=== PATIENT | male | born 1975 | race Caucasian/White ===

== ENCOUNTER 2023-03-15 13:26 | Day surgery (SDC) | payer OTHER ==
[~2023-03-15 13:26] MED LIST: LACTATED RINGERS 1,000 ML IV SCH; LIDOCAINE 1% (10MG/ML) FOR IV START INTRADERMA PRN
[2023-03-15 14:47] VITALS: TEMP 97.2
[2023-03-15] MEDS ORDERED: PROPOFOL 10 MG/ML 20 ML VIAL IV ONE (15:59)
[2023-03-15] MEDS ORDERED: LIDOCAINE 1% INJ 10MG/ML (20 ML MDV) ONE (15:59)
--- NOTE | 2023-03-15 16:14 | P.PCN ---
Date of Procedure: 03/15/23 Procedure(s) Performed: BRIEF HISTORY: Patient is a 47-year-old pleasant at male scheduled for an elective colonoscopy as a part of screening for colon cancer. PROCEDURE PERFORMED: Colonoscopy. PREOPERATIVE DIAGNOSIS: Screening for colon cancer. IV sedation per Anesthesia. PROCEDURE: After informed consent was obtained, the patient, was brought into the endoscopy unit. IV sedation was administered by Anesthesia under continuous monitoring. Digital rectal examination was normal. Initially the Olympus CF-160 flexible video colonoscope was then inserted in the rectum, gradually advanced into the cecum without any difficulty. Careful examination was performed as the scope was gradually being withdrawn. Ileocecal valve and the appendiceal orifice were visualized and appeared normal. Prep was excellent. Mucosa of the cecum, ascending colon, transverse colon, descending colon, sigmoid colon, and rectum appeared normal. Retroflexion was performed in the rectum and no lesions were seen. The patient tolerated the procedure well. IMPRESSION: Normal-appearing colon from rectum to cecum no evidence of colorectal neoplasia RECOMMENDATIONS: Findings of this examination were discussed with the patient as well as his family. He was advised to have a repeat screening colonoscopy in 10 years.
[2023-03-15 17:12] VITALS: BP 119/75; PULSE 67; RESP 16
== END 2023-03-15 17:03 | disposition home or self-care (01) ==
LOC: ORWHC2ENDO 13:26
PROVIDERS: ATTEND Internal Medicine Gastroenterology
DX: Z12.11 Encounter for screening for malignant neoplasm of colon (principal); I10 Essential (primary) hypertension; E78.5 Hyperlipidemia, unspecified; G47.33 Obstructive sleep apnea (adult) (pediatric); F41.9 Anxiety disorder, unspecified; Z79.899 Other long term (current) drug therapy

== ENCOUNTER → 2024-09-08 | Outpatient (CLI) | payer OTHER ==
[2024-09-08 14:05] VITALS: BP 143/88; PULSE 68; RESP 16; TEMP 98
--- NOTE | 2024-09-08 18:33 | P.SLEEP ---
History of Present Illness H&P Date: 09/08/24 This is a pleasant 49-year-old male patient who is coming in to establish care regarding his obstructive sleep apnea at our sleep center. The patient was diagnosed having sleep apnea back in 2007. At that time, the patient had a combination of obstructive and central sleep apnea. The patient had an AHI of 34. Subsequently, he underwent another sleep evaluation at [place] and the patient was found to have again a combination of central and obstructive sleep apnea. The AHI was 47.9 and the central apnea index was 34 and his disease was predominantly central over obstructive. The patient was given an initial BiPAP machine which she used for a total of 3 years. Subsequently, he failed the treatment and he underwent another titration using an ASV BiPAP machine back in 2019 and he was offered an ASV BiPAP which is currently set at a EPAP minimum of 8 with a pressure support minimum of 6 and a maximum 11. Treatment has been successful since 2019 and the patient has no major hypersomnia or sleepiness and the patient is coming in to establish care. I checked the patient's ASV BiPAP machine and the patient is extremely compliant and using the machine every night and is compliancy for more than 4 hours in order of 100%. The patient has been averaging around 7.9 hours of ASV BiPAP use per night. The 95th percentile pressure delivered by the machine is at 17.5/7.9 cm of water. The generated tidal volume is 620 cc with a rate of 12 and a minute ventilation of 7.8 L and is patient's AHI is down to 1.2. Echocardiogram that was done 2019 was essentially within normal limits and the patient has a preserved LV function. No history of atrial fibrillation. No strep stroke. No statin narcotic use. He has previous history of alcoholism, currently not drinking alcohol and the patient is on naltrexone. Other comorbidities include hypertension hyperlipidemia and previous history of anxiety/depression. His weight is up by around 50 pounds. Back in 2019, the patient used to weigh 192 pounds and his current weight is 254 with a body mass index of 37.5. He is currently using a DreamWear nasal mask small size with a medium size headgear. No complaints. No snoring. No hypersomnia or sleepiness during the day.The patient is going to bed at 10 PM and waking up 7 AM in the morning. He is averaging at least 8 hours of sleep. No difficulty with sleep initiation or maintenance. No sleep fragmentation. No naps during the day. No snoring while on the ASV BiPAP. No sleep or ulcers or hallucinations or cataplexy. No reported restlessness in his lower extremities. Review of Systems Constitutional: Reports weight gain Eyes: denies as per HPI, denies blurred vision, denies bulging eye, denies decreased vision, denies diplopia, denies discharge, denies dry eye, denies irritation, denies itching, denies pain, denies photophobia, denies loss of peripheral vision, denies loss of vision, denies tunnel vision/blind spots Ears: deny: decreased hearing, ear discharge, earache, tinnitus Ears, nose, mouth and throat: Reports as per HPI Breasts: absent: as per HPI, gynecomastia Cardiovascular: Reports as per HPI Respiratory: Reports sleep apnea Genitourinary: Reports as per HPI Musculoskeletal: Reports as per HPI Musculoskeletal: absent: ankle pain, ankle stiffness, ankle swelling, as per HPI, elbow pain, elbow stiffness, elbow swelling, foot pain, foot stiffness, foot swelling, hand pain, hand stiffness, hand swelling, hip pain, hip stiffness, hip swelling, knee pain, knee stiffness, knee swelling, shoulder pain, shoulder stiffness, shoulder swelling, wrist pain, wrist stiffness, wrist swelling Integumentary: Reports as per HPI Neurological: Reports as per HPI Psychiatric: Reports as per HPI Endocrine: Reports as per HPI Hematologic/Lymphatic: Reports as per HPI Allergic/Immunologic: Reports as per HPI Past Medical History Past Medical History: Hyperlipidemia, Hypertension, Sleep Apnea/CPAP/BIPAP Additional Past Medical History / Comment(s): idiopathic sleep apnea,wears cpap. History of Any Multi-Drug Resistant Organisms: None Reported Past Surgical History: Hernia Repair Additional Past Surgical History / Comment(s): colonscopy. rt knee reconstructive surgery, rt inguinal hernia repair Past Anesthesia/Blood Transfusion Reactions: No Reported Reaction Past Psychological History: Anxiety Smoking Status: Never smoker Past Alcohol Use History: Occasional Past Drug Use History: None Reported - Past Family History Father Additional Family Medical History / Comment(s): sleep apnea Mother Family Medical History: Cancer Additional Family Medical History / Comment(s): esophageal Medications and Allergies Home Medications Medication Instructions Recorded Confirmed Type Atorvastatin [Lipitor] 20 mg PO HS 03/12/23 09/08/24 History Sertraline HCl [Zoloft] 50 mg PO DAILY 03/12/23 09/08/24 History Unk Multi Vitamin 1 tab PO DAILY 03/12/23 09/08/24 History amLODIPine 10 mg PO DAILY 03/12/23 09/08/24 History amLODIPine 10 mg PO DAILY 09/08/24 09/08/24 History Allergies Allergy/AdvReac Type Severity Reaction Status Date / Time No Known Allergies Allergy Verified 03/15/23 14:29 Physical Exam Vitals: Vital Signs Temp Pulse Resp BP Pulse Ox 09/08/24 14:03 98 F 68 16 143/88 96 Intake and Output 09/08/24 09/08/24 09/08/24 06:59 14:59 22:59 Other: Weight 115.212 kg The patient appeared well nourished and normally developed. Vital signs as documented. The patient has a body mass index of 37.5. He has a Mallampati class IV. Head exam is unremarkable. No scleral icterus or corneal arcus noted. Neck is without jugular venous distension, thyromegaly, or carotid bruits. Carotid upstrokes are brisk bilaterally. Lungs are clear to auscultation and percussion. Cardiac exam reveals the PMI to be normally sized and situated. Rhythm is regular. First and second heart sounds normal. No murmurs, rubs or gallops. Abdominal exam reveals normal bowel sounds, no masses, no organomegaly and no aortic enlargement. Extremities are nonedematous and both femoral and pedal pulses are normal. Examination of the skin revealed no evidence of significant rashes, suspicious appearing nevi or other concerning lesions. Neurologically, the patient is awake and alert and the patient does not have any focal neurological deficit. Cranial nerves are essentially intact. Assessment and Plan Plan: Sleep apnea, predominantly central with a mild obstructive component. Initially diagnosed with established back in 2007. Repeat sleep study done in 2015 showed an AHI of 47.9 with a central apnea index of 34. The patient had his last ASV BiPAP titration back in 2018 and the patient is currently utilizing ASV BiPAP therapy with successful outcome and excellent compliancy. No hypersomnia or sleepiness during the day. No snoring. Machine is functional and the patient is extremely compliant. No reported cardiomyopathy. No history of any congestion heart failure or cardiac arrhythmias. No history of stroke. No history of narcotic use. No other health issues otherwise pertinent with central sleep apnea. Obesity with a BMI of 37.5, current weight is 254 History of alcoholism, currently alcohol free maintained on naltrexone Hypertension Hyperlipidemia Plan Continue ASV BiPAP at the same settings. The patient is on a EPAP minimum of 8 with a pressure support minimum of 6 and maximum of 11 cm of water. The patient is also utilizing a DreamWear nasal mask. Excellent compliancy and clinical response. No need for any further adjustment. Continue same treatment. Encourage weight loss. Maintain good sleep hygiene measures. Addressed all of his cardiovascular comorbidities and the patient wi ll see me back on an annual basis. His machine is functional. No need for any further adjustment at this point. Treatment is successful. Time with Patient: Greater than 30 Sleep Note - Sleep Data ESS Total: 5 - Sleep Note Sleep Note: Temperature: 98 F Pulse Rate: 68 Respiratory Rate: 16 Blood Pressure: 143/88 SpO2: 96 Height: 5 ft 9 in Weight: 115.212 kg BMI: Neck Circumference: 18
== END ==
LOC: 3 N SLEEP 13:33
PROVIDERS: ATTEND Internal Medicine Critical Care Medicine
DX: G47.33 Obstructive sleep apnea (adult) (pediatric) (principal); E66.9 Obesity, unspecified; I10 Essential (primary) hypertension; E78.5 Hyperlipidemia, unspecified; Z86.59 Personal history of other mental and behavioral disorders; Z68.37 Body mass index [BMI] 37.0-37.9, adult
CPT/HCPCS: 99211